=== PATIENT | female | born 1935 | race Caucasian/White ===

== ENCOUNTER 2016-08-28 14:43 | Emergency (ER) | payer MEDICARE, OTHER ==
[~2016-08-28] VITALS: Ht 170.2 cm; Wt 70.5 kg
[~2016-08-28 14:43] MED LIST: ASPI1TAB69 PO; BENA25TA3 PO; COUM2.5T PO; COUM5TAB PO; LEVO100T5 PO; LOVA40TA PO; METO100T PO
[2016-08-28 14:45] VITALS: BP 162/73; PULSE 74; RESP 20; TEMP 97.8; O2SAT 96
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
--- NOTE | 2016-08-28 16:37 | RADRPT ---
EXAM DATE/TIME: 08/28/2016 15:25 [facility] COMPARISON: No previous studies available for comparison. INDICATIONS : Right foot pain, dropped dish on foot MEDICAL HISTORY : None. SURGICAL HISTORY : None. ENCOUNTER: Initial ACUITY: 3 days PAIN SCORE: 3/10 LOCATION: Right Foot FINDINGS: Three view examination of the right foot demonstrates no soft tissue swelling, dislocation, or fractu re. The tarsal bones appear intact. There is some mild focal thickening of the cortex of the proxi mal lateral 3rd metatarsal bone without evidence of acute fracture. The interphalangeal and metatars ophalangeal joints are intact. The calcaneus is intact. Bony mineralization is mildly decreased. M ild calcification in the interdigital vascular structures. CONCLUSION: No evidence of recent bony injury. Ashu Barragan MD on August 28, 2016 at 16:34 Board Certified Radiologist. This report was verified electronically.
== END 2016-08-28 17:04 | disposition home or self-care (01) ==
LOC: NEPK 14:43
DX: S90.31XA Contusion of right foot, initial encounter (principal); W20.8XXA Other cause of strike by thrown, projected or falling object, initial encounter
CPT/HCPCS: 73630; 99283

== ENCOUNTER 2016-09-03 23:10 | Emergency (ER) | payer MEDICARE, OTHER ==
[~2016-09-03 23:10] MED LIST changes: -COUM5TAB PO
[2016-09-03 23:15] VITALS: BP 184/82; PULSE 79; RESP 16; TEMP 98.5
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
--- NOTE | 2016-09-04 00:18 | RADRPT ---
EXAM DATE/TIME: 09/04/2016 00:05 [facility] COMPARISON: CT BRAIN W/O CONTRAST, December 13, 2013, 11:37. INDICATIONS : Cephalgia. RADIATION DOSE: 40.05 CTDIvol (mGy) MEDICAL HISTORY : Hypertension. Gastroesophageal reflux disease. Cardiovascular disease SURGICAL HISTORY : Tubal ligation. Thyroidectomy.Cholecystectomy. ENCOUNTER: Initial ACUITY: 1 day PAIN SCALE: 5/10 LOCATION: cranial TECHNIQUE: Multiple contiguous axial images were obtained of the head. Using automated exposure control and adj ustment of the mA and/or kV according to patient size, radiation dose was kept as low as reasonably a chievable to obtain optimal diagnostic quality images. FINDINGS: CEREBRUM: The ventricles are normal for age. No evidence of midline shift, mass lesion, hemorrhage or acute in farction. No extra-axial fluid collections are seen. Chronic low attenuation again noted in the diandra ventricular white matter. POSTERIOR FOSSA: The cerebellum and brainstem are intact. The 4th ventricle is midline. The cerebellopontine angle i s unremarkable. EXTRACRANIAL: The visualized portion of the orbits is intact. SKULL: The calvaria is intact. No evidence of skull fracture. CONCLUSION: No acute intracranial abnormality. Chronic white matter changes. Chris Benitez MD on September 04, 2016 at 0:15 Board Certified Radiologist. This report was verified electronically.
[2016-09-04 00:28] LABS: AUTOMATED NEUTROPHIL # 4.8 TH/MM3 (1.8-7.7); BASOPHIL # 0.1 TH/MM3 (0-0.2); BASOPHIL % 0.8 % (0.0-2.0); EOSINOPHIL # 0.2 TH/MM3 (0-0.4); EOSINOPHIL % 2.4 % (0.0-4.0); HEMATOCRIT 33.9 % (35.0-46.0); HEMO FLAGS DIFF FINAL; LYMPH % 30.6 % (9.0-44.0); LYMPHOCYTE # 2.6 TH/MM3 (1.0-4.8); MEAN CELL VOLUME 91.9 FL (80.0-100.0); MEAN CORPUSCULAR HEMOGLOBIN 30.6 PG (27.0-34.0); MEAN CORPUSCULAR HGB CONC 33.2 % (32.0-36.0); MONO % 9.6 % (0.0-8.0); NEUT % 56.6 % (16.0-70.0); PLATELET COUNT 234 TH/MM3 (150-450); RED BLOOD COUNT 3.69 MIL/MM3 (4.00-5.30); RED CELL DISTRIBUTION WIDTH 13.2 % (11.6-17.2); WHITE BLOOD COUNT 8.4 TH/MM3 (4.0-11.0)
[2016-09-04 00:43] LABS: APTT (PATIENT) 25.3 SEC (24.3-30.1); PROTHROMBIN TIME - PATIENT 11.1 SEC (9.8-11.6)
[2016-09-04 00:52] LABS: BICARBONATE 29.9 MEQ/L (21.0-32.0); POTASSIUM 4.1 MEQ/L (3.5-5.1)
[2016-09-04 01:22] VITALS: BP 149/68; PULSE 65; RESP 16; O2SAT 95
[2016-09-04] MEDS ORDERED: ONDANSETRON HCL 4 MG/2 ML VIAL IV PUSH ONE (02:00)
[2016-09-04] MEDS ORDERED: KETOROLAC TROMETHAMINE 30 MG/ML (IVP) VIAL IV PUSH ONE (02:00)
[2016-09-04] MEDS ORDERED: ACET325T PO (02:10)
[2016-09-04 02:22] VITALS: BP 132/64
--- NOTE | 2016-09-04 22:25 | EKG ---
Date Performed: 09/03/2016 Time Performed: 23:17:31 PTAGE: 81 years EKG: Sinus rhythm WITH OCCASIONAL SUPRAVENTRICULAR PREMATURE COMPLEXES LOW QRS VOLTAGE IN PRECORDIAL LEADS PATTERN CON SISTENT WITH PULMONARY DISEASE ABNORMAL ECG PREVIOUS TRACING : 09/07/2009 11.33 Compared to the previous tracing rate slower DOCTOR: Andre Alex Interpretating Date/Time 09/04/2016 22:23:40
== END 2016-09-04 02:31 | disposition home or self-care (01) ==
LOC: NEPE 23:10
DX: R51 Headache (principal); I48.91 Unspecified atrial fibrillation; I49.1 Atrial premature depolarization; K21.9 Gastro-esophageal reflux disease without esophagitis; I10 Essential (primary) hypertension; R94.31 Abnormal electrocardiogram [ECG] [EKG]
CPT/HCPCS: 70450; 80048; 85025; 85610; 85652; 85730; 93005; 96374; 96375; 99284; J1885; J2405

== ENCOUNTER 2016-11-07 10:12 | Emergency (ER) | payer MEDICARE, OTHER ==
[~2016-11-07] VITALS: Ht 170.2 cm; Wt 71.0 kg
[~2016-11-07 10:12] MED LIST changes: +ACET325T PO
[2016-11-07 10:14] VITALS: BP 128/61; PULSE 73; RESP 15; TEMP 97.7; O2SAT 100
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
--- NOTE | 2016-11-07 11:10 | RADRPT ---
EXAM DATE/TIME: 11/07/2016 10:57 [facility] COMPARISON: No previous studies available for comparison. INDICATIONS : Left knee pain. Patient states her leg gave out while at breakfast. Pain around whole knee and unable to bear weight. MEDICAL HISTORY : None. SURGICAL HISTORY : None. ENCOUNTER: Initial ACUITY: 1 day PAIN SCORE: 10/10 LOCATION: Left knee. FINDINGS: Four view examination of the left knee demonstrates no evidence of fracture or dislocation. Bony min eralization is normal. The articular surfaces are intact. There are mild degenerative changes charac teristic for patient's age. The suprapatellar soft tissues have a normal configuration. CONCLUSION: Normal examination for a patient of this age. Mulugeta Johnson MD on November 07, 2016 at 11:07 Board Certified Radiologist. This report was verified electronically.
[2016-11-07] MEDS ORDERED: TRAM50TA PO (11:21)
== END 2016-11-07 12:11 | disposition home or self-care (01) ==
LOC: NEPD 10:12
DX: M25.562 Pain in left knee (principal); I10 Essential (primary) hypertension; F41.9 Anxiety disorder, unspecified; I48.91 Unspecified atrial fibrillation; Z79.01 Long term (current) use of anticoagulants
CPT/HCPCS: 73564; 99283

== ENCOUNTER 2017-01-12 23:26 | Observation (INO) | payer MEDICARE, OTHER ==
[~2017-01-12 23:26] MED LIST changes: -ACET325T PO; -ASPI1TAB69 PO; -BENA25TA3 PO; +TRAM50TA PO
[2017-01-12 23:32] VITALS: BP 166/82; PULSE 82; RESP 16; TEMP 98.9; O2SAT 96
[2017-01-13] VITALS (11 sets, daily range): BP systolic 113–163; BP diastolic 58–82; PULSE 61–78; RESP 16–18; TEMP 97.8–98.4; O2SAT 94–98
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
[2017-01-13] MEDS ORDERED: SODIUM CHLORIDE 0.9% FLUSH 10 ML FLUSH IVF PRN (00:15)
[2017-01-13 00:39] LABS: AUTOMATED NEUTROPHIL # 4.3 TH/MM3 (1.8-7.7); BASOPHIL # 0.1 TH/MM3 (0-0.2); BASOPHIL % 0.9 % (0.0-2.0); EOSINOPHIL # 0.2 TH/MM3 (0-0.4); EOSINOPHIL % 2.4 % (0.0-4.0); HEMATOCRIT 33.9 % (35.0-46.0); HEMO FLAGS DIFF FINAL; LYMPH % 31.8 % (9.0-44.0); LYMPHOCYTE # 2.5 TH/MM3 (1.0-4.8); MEAN CELL VOLUME 93.4 FL (80.0-100.0); MEAN CORPUSCULAR HEMOGLOBIN 31.3 PG (27.0-34.0); MEAN CORPUSCULAR HGB CONC 33.5 % (32.0-36.0); MONO % 10.6 % (0.0-8.0); NEUT % 54.3 % (16.0-70.0); PLATELET COUNT 242 TH/MM3 (150-450); RED BLOOD COUNT 3.62 MIL/MM3 (4.00-5.30); RED CELL DISTRIBUTION WIDTH 13.3 % (11.6-17.2)
--- NOTE | 2017-01-13 00:46 | RADRPT ---
EXAM DATE/TIME: 01/13/2017 00:24 [facility] COMPARISON: CHEST PA & LAT, April 08, 2015, 17:06. INDICATIONS : Nausea and heart racing x 1 day. MEDICAL HISTORY : Hypertension. Hepatitis C. A-fib SURGICAL HISTORY : Tubal ligation. Cholecystectomy. Thyroidectomy ENCOUNTER: Initial ACUITY: 1 day PAIN SCORE: 6/10 LOCATION: Bilateral chest FINDINGS: Mild interstitial prominence exaggerated by low lung volumes. Cardiac silhouette is mildly enlarged b ut stable. Central pulmonary vascularity is slightly indistinct. Bony thorax is intact. CONCLUSION: 1. Cardiomegaly with subtle positive fluid balance. Shaji Paris MD on January 13, 2017 at 0:43 Board Certified Radiologist. This report was verified electronically.
[2017-01-13 00:51] LABS: APTT (PATIENT) 43.2 SEC (24.3-30.1); INTERNATIONAL NORMALIZED RATIO 3.3 RATIO
[2017-01-13 00:54] LABS: ANION GAP 4 MEQ/L (5-15); BICARBONATE 30.6 MEQ/L (21.0-32.0); BLOOD UREA NITROGEN 14 MG/DL (7-18); CHLORIDE 105 MEQ/L (98-107); GLOMERULAR FILTRATION RATE 54 ML/MIN (>89); POTASSIUM 3.9 MEQ/L (3.5-5.1); SODIUM (NA) 140 MEQ/L (136-145)
[2017-01-13 01:23] LABS: CREATINE KINASE 92 U/L (26-192)
[2017-01-13] MEDS ORDERED: NALOXONE HCL 0.4 MG/ML AMP IV PRN (01:30)
[2017-01-13] MEDS ORDERED: SODIUM CHLORIDE 0.9% FLUSH 10 ML FLUSH IV FLUSH PRN (01:30)
[2017-01-13 08:58] LABS: CREATINE KINASE 72 U/L (26-192)
[2017-01-13] MEDS: SODIUM CHLORIDE 0.9% FLUSH 10 ML FLUSH IV FLUSH SCH ×2 (09:00→21:00)
--- NOTE | 2017-01-13 09:43 | RADRPT ---
EXAM DATE/TIME: 01/13/2017 07:54 [facility] COMPARISON: No previous studies available for comparison. INDICATIONS : Dizziness, near syncope. MEDICAL HISTORY : Arthritis. Hypothyroidism. Hepatitis. Afib. Hyperlipidemia. HTN. GERD. Anticoagulant therapy. Anxiety . SURGICAL HISTORY : Thyroidectomy. Tubal ligation. Cholecystectomy. Appendectomy. Right tib/fib surgery. Right knee scope . ENCOUNTER: Subsequent ACUITY: 1 day PAIN SCORE: 4/10 LOCATION: Bilateral neck PEAK SYSTOLIC VELOCITIES (cm/sec): ICA/CCA RATIO: Right: 1.0 Left: 0.9 ICA: Right: 84 Left: 86 CCA: Right: 82 Left: 95 ECA: Right: 84 Left: 79 VERTEBRAL: Right: 59 antegrade Left: 65 antegrade Elevated flow velocities and ICA/CCA ratios have been found to correlate with increased degrees of vessel stenosis, calculated as percentage of diameter relative to a normal segment of distal ICA/CCA FINDINGS: RIGHT CAROTID: There is no evidence for a hemodynamically significant carotid stenosis. Minimal int imal hyperplasia is present with scattered calcific plaque. LEFT CAROTID: There is no evidence for a hemodynamically significant carotid stenosis. Minimal inti mal hyperplasia is present with scattered calcific plaque. VERTEBRAL ARTERIES: Flow is antegrade in both vertebral arteries. MISCELLANEOUS: There are no ancillary masses or adenopathy. CONCLUSION: Negative examination for a hemodynamically significant carotid stenosis. Board Certified Radiologist. This report was verified electronically.
[2017-01-13] MEDS ORDERED: LISI10TA3 PO (10:07)
--- NOTE | 2017-01-13 10:09 | HHI.HP ---
[facility] [place] [facility] Primary Care Physician Leroy Eugene MD Admission Diagnosis near-syncope, paroxysmal atrial fibrillation Diagnoses: Chief Complaint: palpitations, near syncope Travel History International Travel<30 Days: No Contact w/Intl Traveler <30 Da: No Traveled to Known Affected Are: No History of Present Illness Written by Katja Estrada, acting as scribe for Dr. Velez on 01/13/17 at 10:01. This note was transcribed by scribe Katja Estrada PA-C. I, Dr. Phil Velez personally performed the history, physical exam, and medical decision making; and confirmed the accuracy of the information in the transcribed note. Authenticated by Dr. Phil Velez on 01/13/17 at 23:31. 81-year-old female with history of atrial fibrillation on Coumadin, hypothyroidism, hyperlipidemia, GERD, presents with acute onset of palpitations and near syncope. The patient reports last night she went over to her neighbors house, had 1 large glass of wine, she was talking and laughing with friends, then all of a sudden she became acutely dizzy, lightheaded, and felt like she was going to pass out. She rested for a few minutes then made it back to her home, took her medications, started to get into bed, and then felt severe palpitations up into her neck. She tried to rest however the more she laid there , she felt more and more sick to her stomach. She and her felt her radial pulse and it was "going berserk", described as very fast and irregular. She denies any chest pain or shortness of breath but did have some diaphoresis and felt clammy. She was diagnosed with atrial fibrillation in 2008 and is compliant with Coumadin and Metoprolol 100mg bid. Her master lay out specialist is Dr. Salas. She saw her PCP yesterday and her INR was 3.3 so they told her to skip her dose yesterday. She normally takes Coumadin 5mg 5 days a week, and 2.5mg 2 days a week. The patient spontaneously converted to NSR in the ER, however now seen in CDU, back in atrial fibrillation with rate controlled around low 70s. Review of Systems Except as stated in HPI: all other systems reviewed are Neg Past Family Social History Past Medical History Atrial fibrillation on Coumadin Hypothyroidism Osteoarthritis GERD Past Surgical History Left knee arthroscopic surgery 2 weeks ago Right knee arthroscopic surgery 30years ago Thyroidectomy Cholecystectomy Tubal ligation Reported Medications Tramadol (Tramadol HCl) 50 Mg Tab 50 Mg PO Q6H PRN Lovastatin 40 Mg Tab 40 Mg PO DAILY Metoprolol Tartrate 100 Mg Tab 100 Mg PO BID Levothyroxine (Levothyroxine Sodium) 100 Mcg Tab 100 Mcg PO DAILY Coumadin (Warfarin) 2.5 Mg Tab 2.5 Mg PO DAILY Allergies: Coded Allergies: iodine (Unverified Allergy, Severe, 01/12/17) potassium iodide (Unverified Allergy, Severe, 01/12/17) povidone-iodine (Unverified Allergy, Severe, 01/12/17) sodium iodide (Unverified Allergy, Severe, 01/12/17) sodium iodide (Unverified Allergy, Severe, 01/12/17) ampicillin (Unverified Allergy, Mild, 01/12/17) Uncoded Allergies: SEA FOOD (Allergy, Mild, 02/19/06) Active Ordered Medications Current Medications Medications (Trade) Dose Ordered Sig/Zara Route Start Time Stop Time Status Last Admin (NS Flush) 2 ml UNSCH PRN IV FLUSH 01/13/17 01:30 (NS Flush) 2 ml BID IV FLUSH 01/13/17 09:00 01/13/17 09:00 (Narcan Inj) 0.4 mg UNSCH PRN IV 01/13/17 01:30 Family History Sister with either liver or kidney cancer Brother with diabetes Mother with Parkinson's disease Father was a smoker and lived to age 88 Social History Denies any tobacco use ever Very occasional alcohol use, maybe 1 glass of wine twice a month Denies any illicit drug use Physical Exam Vital Signs Vital Signs Date Time Temp Pulse Resp B/P (MAP) Pulse Ox O2 Delivery O2 Flow Rate FiO2 01/13/17 07:51 151/72 (98) 01/13/17 07:47 97.9 75 16 152/76 (101) 97 01/13/17 04:40 98.4 78 18 138/68 (91) 98 01/13/17 00:57 163/82 (109) 157/75 (102) 01/13/17 00:56 97 Room Air 01/13/17 00:56 18 97 Room Air 01/12/17 23:32 98.9 82 16 166/82 (110) 96 Room Air Physical Exam GENERAL: Well-nourished, well-developed very pleasant elderly female patient in [facility]. SKIN: Warm and dry. No rash. HEAD: Normocephalic. Atraumatic. EYES: Pupils equal and round. No scleral icterus. No injection or drainage. ENT: No nasal bleeding or discharge. Mucous membranes pink and moist. NECK: Supple. Trachea midline. CARDIOVASCULAR: Irregular rate and rhythm. S1, S2 noted. No murmur appreciated. RESPIRATORY: No accessory muscle use. Clear to auscultation. Breath sounds equal bilaterally. GASTROINTESTINAL: Abdomen soft, non-tender, nondistended. Normoactive bowel sounds x4. MUSCULOSKELETAL: No obvious deformities. Extremities without clubbing, cyanosis , or edema. NEUROLOGICAL: Awake and alert. No obvious cranial nerve deficits. Motor grossly within normal limits. Normal speech. PSYCHIATRIC: Appropriate mood and affect; insight and judgment normal. Laboratory Laboratory Tests Test 01/13/17 00:20 01/13/17 07:17 White Blood Count 8.0 Red Blood Count 3.62 Hemoglobin 11.4 Hematocrit 33.9 Mean Corpuscular Volume 93.4 Mean Corpuscular Hemoglobin 31.3 Mean Corpuscular Hemoglobin Concent 33.5 Red Cell Distribution Width 13.3 Platelet Count 242 Mean Platelet Volume 7.7 Neutrophils (%) (Auto) 54.3 Lymphocytes (%) (Auto) 31.8 Monocytes (%) (Auto) 10.6 Eosinophils (%) (Auto) 2.4 Basophils (%) (Auto) 0.9 Neutrophils # (Auto) 4.3 Lymphocytes # (Auto) 2.5 Monocytes # (Auto) 0.8 Eosinophils # (Auto) 0.2 Basophils # (Auto) 0.1 CBC Comment DIFF FINAL Differential Comment Prothrombin Time 39.0 Prothromb Time International Ratio 3.3 Activated Partial Thromboplast Time 43.2 Blood Urea Nitrogen 14 Creatinine 0.99 Random Glucose 133 Calcium Level 9.3 Magnesium Level 2.0 Sodium Level 140 Potassium Level 3.9 Chloride Level 105 Carbon Dioxide Level 30.6 Anion Gap 4 Estimat Glomerular Filtration Rate 54 Total Creatine Kinase 92 72 Troponin I LESS THAN 0.02 LESS THAN 0.02 Thyroid Stimulating Hormone 3rd Gen 0.898 Result Diagram: 01/13/17 0020 01/13/17 0020 Imaging Last Impressions Chest X-Ray 01/13/17 0009 Signed Impressions: Service Date/Time: Friday, January 13, 2017 00:24 - CONCLUSION: 1. Cardiomegaly with subtle positive fluid balance. Shaji Paris MD Carotid Artery Ultrasound 01/13/17 0000 Signed Impressions: Service Date/Time: Friday, January 13, 2017 07:54 - CONCLUSION: Negative examination for a hemodynamically significant carotid stenosis. Board Certified Radiologist. This report was verified electronically. MD Mancini VTE Risk Assessment Live VTE Risk Assessment: Mod/High Risk (score >= 2) Heathrini Risk Assessment Model Point Value = 1 Point Value = 2 Point Value = 3 Point Value = 5 Age 41-60 Minor surgery BMI > 25 kg/m2 Swollen legs Varicose veins or History of unexplained or recurrent spontaneous Oral contraceptives or hormone replacement Sepsis (< 1 month) Serious lung disease, including pneumonia (< 1 month) Abnormal pulmonary function Acute myocardial infarction Congestive heart failure (< 1 month) History of inflammatory bowel disease Medical patient at bed rest Age 61-74 Arthroscopic surgery Major open surgery (> 45 min) Laparoscopic surgery (> 45 min) Malignancy Confined to bed (> 72 hours) Immobilizing plaster cast Central venous access Age >= 75 History of VTE Family history of VTE Factor V Leiden Prothrombin [id number] Lupus anticoagulant Anticardiolipin antibodies Elevated serum homocysteine Heparin-induced thrombocytopenia Other congenital or acquired thrombophilia Stroke (< 1 month) Elective arthroplasty Hip, pelvis, or leg fracture Acute spinal cord injury (< 1 month) Prophylaxis Regimen Total Risk Factor Score Risk Level Prophylaxis Regimen 0-1 Low Early ambulation 2 Moderate Order ONE of the following: *Sequential Compression Device (SCD) *Heparin 5000 units SQ BID 3-4 Higher Order ONE of the following medications: *Heparin 5000 units SQ TID *Enoxaparin/Lovenox 40 mg SQ daily (WT < 150 kg, CrCl > 30 mL/min) *Enoxaparin/Lovenox 30 mg SQ daily (WT < 150 kg, CrCl > 10-29 mL/min) *Enoxaparin/Lovenox 30 mg SQ BID (WT < 150 kg, CrCl > 30 mL/min) AND/OR *Sequential Compression Device (SCD) 5 or more Highest Order ONE of the following medications: *Heparin 5000 units SQ TID (Preferred with Epidurals) *Enoxaparin/Lovenox 40 mg SQ daily (WT < 150 kg, CrCl > 30 mL/min) *Enoxaparin/Lovenox 30 mg SQ daily (WT < 150 kg, CrCl > 10-29 mL/min) *Enoxaparin/Lovenox 30 mg SQ BID (WT < 150 kg, CrCl > 30 mL/min) AND *Sequential Compression Device (SCD) Assessment and Plan Problem List: (1) Paroxysmal atrial fibrillation ICD Code: I48.0 - Paroxysmal atrial fibrillation Status: Acute (2) Near syncope ICD Code: R55 - Syncope and collapse Status: Acute (3) Supratherapeutic INR ICD Code: R79.1 - Abnormal coagulation profile Status: Acute Assessment and Plan 81-year-old female with history of atrial fibrillation on Coumadin, hypothyroidism, hyperlipidemia, GERD, presents with acute onset of palpitations and near syncope. Atrial Fibrillation: with suspected RVR prior to arrival. EKG obtained in ER reviewed, shows sinus rhythm with rate 72. Currently on telemetry patient back in afib with rate controlled in 70s. -INR supratherapeutic at 3.3 -Discussed with patient's master lay out specialist Dr. Salas, recommended adding Cardizem 120mg daily -Changed metoprolol from 100mg bid to 50mg q8h -Continue to monitor on telemetry Supratherapeutic INR: 3.3. Patient held her Coumadin yesterday. -Repeat PT/INR now -Adjust Coumadin dosing based on repeat INR Near Syncope: strongly suspect secondary to above, likely in afib RVR prior to arrival -Carotid U/S negative -ACS ruled out with negative serial cardiac enzymes x2 and EKG without acute ischemic changes -Monitoring on telemetry -Symptoms resolved Hypothyroidism: chronic, stable, TSH wnl -continue patient's levothyroxine All other medical conditions stable, continue home medications as appropriate. DVT Prophylaxis: on Coumadin Discussed Condition With Patient, patient's , CDU RN, Katja Stafford PA-C Jan 13, 2017 10:09 aMryanne Velez DO Jan 13, 2017 23:31
[2017-01-13] MEDS ORDERED: METOPROLOL TARTRATE 100 MG TAB PO SCH (10:15)
[2017-01-13] MEDS: LISINOPRIL 10 MG TAB PO SCH (10:33)
[2017-01-13] MEDS: LEVOTHYROXINE SODIUM 100 MCG TAB PO SCH (10:34)
[2017-01-13] MEDS: PRAVASTATIN SOD 40 MG TAB PO SCH (10:34)
--- NOTE | 2017-01-13 11:34 | EKG ---
Date Performed: 01/13/2017 Time Performed: 00:13:34 PTAGE: 81 years EKG: Sinus rhythm LOW QRS VOLTAGE IN PRECORDIAL LEADS BORDERLINE ECG PREVIOUS TRACING : 09/03/2016 23.17 No significant change from previous tracing noted. DOCTOR: Zaid Rubio Interpretating Date/Time 01/13/2017 11:32:13
[2017-01-13] MEDS: DILTIAZEM-CD 120 MG CAP ER PO SCH (12:56)
[2017-01-13 14:16] LABS: INTERNATIONAL NORMALIZED RATIO 3.3 RATIO; PROTHROMBIN TIME - PATIENT 37.9 SEC (9.8-11.6)
[2017-01-13 14:38] LABS: CREATINE KINASE 68 U/L (26-192)
[2017-01-13] MEDS: METOPROLOL TARTRATE 100 MG TAB PO SCH (17:52)
[2017-01-14] MEDS: METOPROLOL TARTRATE 100 MG TAB PO SCH ×2 (02:27→10:26)
[2017-01-14 04:00] VITALS: PULSE 55
[2017-01-14] MEDS: LEVOTHYROXINE SODIUM 100 MCG TAB PO SCH (06:24)
[2017-01-14 06:41] VITALS: BP 118/58; PULSE 58; RESP 18; TEMP 98.7; O2SAT 98
[2017-01-14 07:09] VITALS: PULSE 55
[2017-01-14 07:39] VITALS: BP 133/63; PULSE 66; RESP 18; TEMP 97.6; O2SAT 94
[2017-01-14] MEDS ORDERED: METO-338 PO (07:52)
[2017-01-14] MEDS ORDERED: CARD120C4 PO (07:52)
--- NOTE | 2017-01-14 07:53 | HHI.DCPOC ---
Discharge Care Plan Diagnosis: (1) Paroxysmal atrial fibrillation (2) Near syncope (3) Supratherapeutic INR Goals to Promote Your Health * To prevent worsening of your condition and complications * To maintain your health at the optimal level Directions to Meet Your Goals Take your medications as prescribed Follow your dietary instruction Follow activity as directed Keep your appointments as scheduled Take your immunizations and boosters as scheduled If your symptoms worsen call your PCP, if no PCP go to Urgent Care Center or Emergency Room Smoking is Dangerous to Your Health. Avoid second hand smoke Call the 24-hour hour crisis hotline for domestic abuse at Katja Estrada PA-C Jan 14, 2017 07:53
[2017-01-14] MEDS: LISINOPRIL 10 MG TAB PO SCH (08:34)
[2017-01-14] MEDS: DILTIAZEM-CD 120 MG CAP ER PO SCH (08:34)
[2017-01-14] MEDS: PRAVASTATIN SOD 40 MG TAB PO SCH (08:34)
[2017-01-14] MEDS: SODIUM CHLORIDE 0.9% FLUSH 10 ML FLUSH IV FLUSH SCH (08:35)
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
[2017-01-14 11:40] VITALS: BP 117/56; PULSE 68; RESP 20; TEMP 97.8; O2SAT 95
[2017-01-14 11:54] LABS: AUTOMATED NEUTROPHIL # 4.8 TH/MM3 (1.8-7.7); BASOPHIL # 0.1 TH/MM3 (0-0.2); EOSINOPHIL # 0.1 TH/MM3 (0-0.4); EOSINOPHIL % 1.7 % (0.0-4.0); HEMATOCRIT 34.3 % (35.0-46.0); HEMO FLAGS DIFF FINAL; LYMPH % 25.8 % (9.0-44.0); MEAN CELL VOLUME 93.3 FL (80.0-100.0); MEAN CORPUSCULAR HEMOGLOBIN 31.1 PG (27.0-34.0); MEAN CORPUSCULAR HGB CONC 33.4 % (32.0-36.0); MONO % 8.8 % (0.0-8.0); NEUT % 62.7 % (16.0-70.0); PLATELET COUNT 247 TH/MM3 (150-450); RED BLOOD COUNT 3.68 MIL/MM3 (4.00-5.30); RED CELL DISTRIBUTION WIDTH 13.2 % (11.6-17.2); WHITE BLOOD COUNT 7.7 TH/MM3 (4.0-11.0)
[2017-01-14 12:00] LABS: PROTHROMBIN TIME - PATIENT 22.7 SEC (9.8-11.6)
[2017-01-14 12:15] LABS: BICARBONATE 30.1 MEQ/L (21.0-32.0); POTASSIUM 3.8 MEQ/L (3.5-5.1)
== END 2017-01-14 13:11 | disposition home or self-care (01) ==
LOC: NEPE 23:26 → NEDA 01-13 01:34 → NEPFCDU 01-13 03:21
PROVIDERS: ADMIT Hospitalist; ATTEND Hospitalist
DX: I48.0 Paroxysmal atrial fibrillation (principal); R55 Syncope and collapse; R79.1 Abnormal coagulation profile; R42 Dizziness and giddiness; E78.5 Hyperlipidemia, unspecified; E03.9 Hypothyroidism, unspecified
CPT/HCPCS: 71010; 80048; 82550; 83735; 84443; 84484; 85025; 85610; 85730; 93005; 93880; 97162; 99285; G0378; G8987; G8988